=== PATIENT | male | born 1975 | race African-American/Black ===

== ENCOUNTER 2021-01-19 18:14 | Emergency (ER) | payer MEDICAID, SELFPAY ==
[2021-01-19 18:17] VITALS: BP 122/73; PULSE 116; RESP 20; TEMP 37.8; O2SAT 96; BMI 40.6
[2021-01-19] MEDS: Lidocaine HCl 2 % MPF 5 ML VIAL SUBCUT (19:15)
--- NOTE | 2021-01-19 20:00 | ED_ITS ---
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 Patient was moving a large glass sliding door when it slipped and broke causing a laceration to his left thigh. Tetanus UTD. Related Data Previous Rx's Medication Instructions Recorded cephalexin 500 mg PO Q8H #21 cap 01/19/21 Allergies Allergy/AdvReac Type Severity Reaction Status Date / Time No Known Allergies Allergy Verified 01/19/21 18:43 Review of Systems Review of Systems: Yes all other systems are reviewed and are negative Constitutional: Constitutional: Reports no additional constitutional complai nts, Denies body ache(s), Denies chills, Denies fever(s), Denies headache(s) and Denies weakness Eyes: Eyes: Reports no additional eye complaints and Denies change in vision ENT: Reports system reviewed and no additional complaints, except as documented, Denies dizziness, Denies headache(s), Denies nasal congestion, Denies nasal discharge and Denies neck pain Cardiovascular: Cardiovascular: Reports no additional cardiovascular complaints, Denies chest pain, Denies leg edema and Denies dyspnea Respiratory: Respiratory: Reports no additional respiratory complaints, Denies cough and Denies dyspnea Gastrointestinal: Gastrointestinal: Reports no additional gastrointestinal complaints, Denies abdominal pain, Denies diarrhea, Denies nausea and Denies vomiting Genitourinary: Genitourinary: Denies urinary incontinence Musculoskeletal: Musculoskeletal: Reports no additional musculoskeletal compl aints, Denies back pain, Denies arthralgias, Denies joint swelling, Denies neck pain, Denies numbness and Denies tingling Integumentary/Breasts: Skin/Breast: Reports system reviewed and no additional complaints, except as docu and Denies rash Comments: +laceration Neurologic: Reports system reviewed and no additional complaints, except as documented, Denies Abnormal speech present, Denies dizziness, Denies headache(s), Denies numbness, Denies tingling and Denies weakness PMFSH Past Medical History Attestation statement: The following information was validated with the patient. Source: old records reviewed and nursing notes reviewed Medical History No known health problems Social History Social History Smoking Status: Never smoker Use of substances other than those prescribed or required for medical reasons: Yes Substance Use Type: Marijuana Advance Directives: No Advance Directives Information Provided: No Physical Exam Vital Signs: Vital Signs: Last Vital Signs Temp 100.0 F 01/19/21 18:17 Pulse 116 H 01/19/21 18:17 Resp 20 01/19/21 18:17 BP 122/73 01/19/21 18:17 Pulse Ox 96 01/19/21 18:17 Body Mass Index 40.6 Const: General: cooperative, healthy appearing, comfortable and no acute distress Orientation/consciousness: patient oriented x3 Limitations: no limitations HENMT: Head: Yes normal to inspection Ears: hearing grossly normal bila terally General nose exam: Normal external nose present Face and sinus: Yes normal facial exam Mouth: Normal oral and palatal mucosa present Throat: Yes posterior oropharynx normal Eyes: General: appearance normal, both eyes and all related structures Pupils: Equal, round and reactive pupils present Neck: Neck: Yes normal visual inspection Chest: Chest palpation & inspection: normal inspection of the chest Resp: Effort & Inspection: normal respiratory effort Auscultation: clear to auscultation bilaterally Cardio: Rate: regular rate Rhythm: regular rhythm Peripheral pulses: Peripheral pulses 2+ throughout GI: Inspection: Yes normal to inspection Palpation (GI): Soft to palpation and nontender Auscultation: normal bowel sounds Back/Spine/Pelvis: Thoracic/Lumbar Spine: thoracic and lumbar spine normal to inspection Skin: General skin exam: no rashes or lesions noted Neuro: General: patient oriented x3, no focal motor deficits and normal sensation to monofilament Cranial nerves: Yes Equal, round and reactive pupils present Cognition (Neuro): normal cognition Speech: No Abnormal speech present Gait exam (Neuro): Normal gait present Motor exam (neuro): 5/5 motor strength present throughout Extrem: General: Yes normal to inspection Upper/lower leg/hip images: 1. laceration present to the mid anterior thigh ~6cm x 2cm with SQ tissue noted. No muscle layer involved. Bleeding controlled Course Course Course Narrative: Laceration to left thigh. See procedure note. Clean wound with clean margins and wound bed however patient and family insistent on pptx antibiotics. Reviewed wound care at home. Reviewed worrisome signs/symptoms with patient and when to return to ED. Comfortable with discharge home. Procedures Laceration Laceration 1: Site: lower extremity Side (If applicable): left Size (cm): 6 Description: linear Depth: simple, single layer Local Anesthetic: lidocaine 2% Amount of anesthesia used (mL): 5 Pre-repair: wound explored, irrigated extensively and deep structures intact Skin layer closed with: nylon Size (cm): 4-0 and other Number of sutures: 7 Technique: simple, interrupted Subcutaneous layer closed with: other (polsorb) Size: 3-0 Number of sutures: 3 Technique: simple, interrupted Discharge Plan Discharge Clinical Impression: Laceration Patient Disposition: Home, Self-Care Instructions: Laceration (ED) Additional Instructions: let the steri strips fall of on their own (about 5 days). Then wash with soap and water in the shower Sutures out in 10-14 days try not to flex the leg and use crutches if able Prescriptions: New cephalexin 500 mg capsule 500 mg PO Q8H Qty: 21 RF: 0 Referrals: ED Physician,Generic [Physician] - 2 days Interventions: ED Discharge Assessment Last Done: 01/19/21 20:04 Discharge Date/Time: 01/19/21 20:06
== END 2021-01-19 20:06 | disposition home or self-care (01) ==
PROVIDERS: Emergency Provider Internal Medicine
DX: S71.111A Laceration without foreign body, right thigh, initial encounter (principal); W25.XXXA Contact with sharp glass, initial encounter; F12.90 Cannabis use, unspecified, uncomplicated; Y93.E9 Activity, other interior property and clothing maintenance; Y92.019 Unspecified place in single-family (private) house as the place of occurrence of the external cause; Y99.9 Unspecified external cause status
CPT/HCPCS: 12032; 99284